=== PATIENT | male | born 1960 | race Caucasian/White ===

== ENCOUNTER 2016-03-28 13:02 | Day surgery (SDC) | payer OTHER ==
[2016-03-28] VITALS (7 sets, daily range): BP systolic 132–155; BP diastolic 72–101; PULSE 67–82; RESP 14–17; O2SAT 94–98
[~2016-03-28] VITALS: Ht 195.6 cm; Wt 71.0 kg
[~2016-03-28 13:02] MED LIST: CEPH-512 PO; HYDR-4003 PO; Vancomycin Inj 1,000 MG in IV Premix 1 EACH IV ONE
[2016-03-28] MEDS ORDERED: Ondansetron 2 mg/mL 2 mL Inj ONE (13:03)
[2016-03-28] MEDS ORDERED: Dexamethasone 4 mg/mL Inj ONE (13:03)
[2016-03-28] MEDS ORDERED: fentaNYL-PF 50 mCg/mL 2 mL Inj ONE (13:03)
[2016-03-28] MEDS ORDERED: Propofol 10 mg/mL 20 mL Inj ONE (13:03)
[2016-03-28] MEDS ORDERED: MetoCLOpramide 5 mg/mL 2 mL Inj ONE (13:03)
[2016-03-28] MEDS ORDERED: Lactated Ringer's 1,000 ML IV ONE ×2 (13:43→18:20)
[2016-03-28] MEDS ORDERED: Vancomycin 1,000mg/200 mL NS IV ONE (14:06)
[2016-03-28 14:20] LABS: Mean Corpuscular Hemoglobin 31.5 pg (27.0-35.0); Mean Corpuscular Volume 95.1 fL (81-100)
[2016-03-28] MEDS ORDERED: fentaNYL-PF 50 mCg/mL 2 mL Inj IVPUSH PRN (16:00)
[2016-03-28] MEDS ORDERED: Phenylephrine 10,000 mCg/mL Inj IVPUSH PRN (16:00)
[2016-03-28] MEDS ORDERED: MetoCLOpramide 5 mg/mL 2 mL Inj IVPUSH PRN (16:00)
[2016-03-28] MEDS ORDERED: Lactated Ringer's 500 ML IV PRN (16:00)
[2016-03-28] MEDS ORDERED: Labetalol 5 mg/mL 4 mL Inj IV PRN (16:00)
[2016-03-28] MEDS ORDERED: Atropine 0.4 mg/mL Inj IVPUSH PRN (16:00)
[2016-03-28] MEDS ORDERED: EPHEDrine Sulfate 50 mg/mL Inj IVPUSH PRN (16:00)
[2016-03-28] MEDS ORDERED: HYDROmorphone 1 mg/mL Inj IVPUSH PRN (16:00)
[2016-03-28] MEDS ORDERED: Lactated Ringer's 1,000 ML IV SCH (16:00)
[2016-03-28] MEDS ORDERED: Ondansetron 2 mg/mL 2 mL Inj IVPUSH PRN (16:00)
[2016-03-28] MEDS ORDERED: hydrALAZINE 20 mg/mL Inj IVPUSH PRN (16:00)
--- NOTE | 2016-03-28 16:00 | PCM.HPANE ---
Patient Data Surgeon Admitting Provider: Attending Provider:Reg Rome MD Primary Care Physician:Luly Other Provider:Anson Latham Anesthesia Reason for Visit Left Index Finger Foreign Body, Cellulitis/Abcess Ht/WT & BMI Height (Feet): 6 Height (Inches): 5 Weight (Kilograms): 71 Body Mass Index 18.00 Allergies Coded Allergies: No Known Allergies (Unverified , 03/27/16) Past Anesthesia History Anesthesia History: Denies:: Anesthesia Reactions, Malignant Hyperthermia Diabetes History Hx Diabetes?: No MRSA MRSA: No Medications Hypertension Medication: No Home Meds Incl Beta Lorrie: No Reported Medications Hydrocodone-Acetaminophen 5-325 mg 1 Each Tablet1 Tablet PO Q8H PRN For Pain Ref 0 03/27/16 Cephalexin (Keflex)500 Mg Capsule1,000 Mg PO BID #40 CAPSULE Ref 0 03/27/16 History History of ENT Problems?: No Hx of Heart Problems?: Yes Cardiovascular History: Positive for:: Cardiac Surgery (HEART CATH W/ STENTS X2 2011) Chest Pain (NE 2011) Coronary Artery Disease Denies:: Valvular Heart Disease Hx of Respiratory Problem?: Yes Respiratory History: Positive for:: Emphysema Denies:: Use of C-PAP Machine Hx Neurologic Problems?: Yes Hx of GI Problems?: No Hx of Problems?: No Male Hx: Denies:: Prostate Problems Scrotal Mass Testicular Surgery Skin History: Positive for:: History Skin Disorders? Denies:: Pressure Ulcers Hx Musculoskeletal Problems?: Yes Musculoskeletal History: Positive for:: Musculoskeletal Trauma (FB LT INDEX FINGER (WOOD OR METAL SPLINTERS)=CURRENT PROBLEM) Hx of Psycho/Social Problems?: No Hx Surgeries?: Yes (HEART CATH W/ STENTS X2) Hx Any Other Health Problems?: Yes Other History: Denies:: Cancer Endocrine Disease Hospitalization Thyroid Disease Hx Diabetes: No Stop/Bang S-Snoring: Do You Snore Loudly: No T-Tired: feel tired, fatigued: Yes O-Obsered: Observed not breath: No P-Blood Pressure: treated: No B- Body Mass Index > 35 kg/m2: No A- Age over 50: Yes N- Neck Large Circumference: No G- Gender Male: Yes SILVESTRE Total Score: 3 Risk Assessment Category Category 1A: Patient has history of documented sleep apnea, and HAS NOT received any narcotic, sedative or anesthesia administration during this stay. Category 1B: Patient has history of documented sleep apnea, and HAS received any narcotic , sedative or anesthesia administration during this stay Category 2: Patient has SUSPECTED Obstructive Sleep Apnea, and HAS received any narcotic , sedative or anesthesia administration during this stay. Category 3: Patient has SUSPECTED Obstructive Sleep Apnea and HAS NOT received narcotic, sedative or anesthesia administration during this stay. Category 4: Outpatient in Procedural Areas with known sleep apnea or who screen positive for High Risk via the STOP/BANG questionnaire. Exam Exam Vital Signs Vital Signs Date Time Temp Pulse Resp B/P Pulse Ox O2 Delivery O2 Flow Rate FiO2 03/28/16 13:31 36.6 76 14 132/72 96 Room Air General Appearance: Alert, Oriented X3, Cooperative, No Acute Distress HEENT/AIRWAY: MP 2, Neck Movement (FROM), Mouth Opening (3 FBMO) Lungs: Clear to Auscultation, Wheezes Heart: Exam Unremarkable, Regular Rate/Rhythm, No Murmurs/Rubs/Gallops Plan Impression Patient chart reviewed, patient interviewed and anesthestic plan with risks, benefits, and alternatives discussed, and informed consent obtained. NPO Status: clears to 1000 ASA Physical Status: ASA2 Mod Systemic Disease Anesthetic Plan: GA Bene/Risks/Altern/Consents: Yes HP Complete Prior to Induction: Yes Dannie Nicholas MD Mar 28, 2016 13:44
[2016-03-28] MEDS ORDERED: Gentamicin 40 mg/mL 2 mL Inj IRRIGATION ONE (16:07)
[2016-03-28] MEDS ORDERED: Bupivacaine-MPF 0.5% 30 mL Inj NERVEBLOCK ONE (17:09)
--- NOTE | 2016-03-28 17:30 | PCM.ANEP2 ---
Post Anesthesia Evaluation ASA/CMS Post Anesthesia VS in Patient's Normal Range?: Yes Resp Stable; Airway Patent?: Yes CV Function & Hydration Stable: Yes Mental Status Recovered?: Yes Pain control Satisfactory?: Yes N/V Control Satisfactory?: Yes Dannie Nicholas MD Mar 28, 2016 17:30
--- NOTE | 2016-03-28 17:30 | PCM.ANEP1 ---
Post Anesthesia Phase 1 PACU Phase 1 Assessment Vital Signs Vital Signs Date Time Temp Pulse Resp B/P Pulse Ox O2 Delivery O2 Flow Rate FiO2 03/28/16 13:31 36.6 76 14 132/72 96 Room Air Anesthetic Administered: GA Level of Alertness: Awake, talking LIMON's with Equal Strength: Yes Pain: No Nausea or Vomiting: No Oxygen Delivery: Room Air Lungs: Clear to Auscultation, Wheezes Dermatome Level: Full Sensation Dannie Nicholas MD Mar 28, 2016 17:30
[2016-03-28] MEDS ORDERED: oxyCODONE-Acetamin 5-325 mg Tablet PO PRN (17:50)
--- NOTE | 2016-03-28 19:12 | OP ---
[address] [address] OPERATIVE REPORT PATIENT: ISRAEL HEWITT : 1960 MR#: [id number] ADMIT: 03/28/2016 JOB ID: [id number] DATE OF SURGERY: 03/28/2016 PREOPERATIVE DIAGNOSIS(ES): 1. Left index finger abscess cellulitis over the area of the proximal phalanx and proximal interphalangeal joint. ICD 10 code LO 3.019. 2. Left index finger foreign body, superficial. ICD 10 code S60.459A. POSTOPERATIVE DIAGNOSIS(ES): 1. Left index finger abscess cellulitis over the area of the proximal phalanx and proximal interphalangeal joint. ICD 10 code L03.019. 2. Left index finger foreign body, superficial. ICD 10 code S60.459A. PROCEDURE: 1. Incision and drainage, excisional debridement, left index finger infection. CPT code 72202. 2. Removal of foreign body and foreign body granulomatous material, left index finger. CPT code 14819. SURGEON: Reg Rome MD GLOBE MOUNTER: None. ANESTHESIA: General. Additional metacarpal nerve block performed by surgeon for postoperative analgesia. COMPLICATIONS: None. SPECIMEN: Sent to pathology; both bacteriology and pathology. COUNTS: Sponge and needle counts correct. INDICATION: Indications a 55-year-old male with an infection in his left index finger that has been indolent over the past month. He evidently got some type of foreign body metal or some type of siding material in his left index finger. He tried to pick it out but he was not able to remove it. He developed an abscess over the dorsal aspect of the PIP joint but it did not involve the joint. It was drained at [facility] and a wick was placed in the wound. The wick was removed, but he still had some residual infection and some associated cellulitis. PROCEDURE IN DETAIL: Under adequate general anesthetic, a well-padded tourniquet was applied to the left upper extremity. After appropriate time-out was called. The arm was elevated, but it was not exsanguinated due to the infection, and the tourniquet inflated to 250 mmHg. A curvilinear incision was fashioned over the dorsal aspect of the PIP joint and extending down to the mid lateral aspect of the finger. This was the area of the most obvious cellulitis and possible area of foreign body. The patient was found have a lot of thickened granulomatous tissue between the skin and subcutaneous tissue, and between that and the extensor tendon. That was dissected. A fair amount of skin was also removed, with skin callus also removed. The area that had been previously incised over the PIP joint; that skin was excised. Cultures were taken. There was a fair amount of fibrous granulomatous material extending over the proximal phalanx and over the PIP joint, and just slightly distal to the PIP joint. There was no involvement over the flexor aspect of the finger. There were some flecks of material that were probably some foreign body that were removed with the granulomatous material. This material was excised and sent to bacteriology as well as pathology. The wound was then thoroughly irrigated with antibiotic solution. After the wound was irrigated with antibiotic solution, clean gloves and clean instruments were utilized. The extensor tendon was noted to be intact and the PIP joint was not involved. The tourniquet was released. Minimal hemostasis required. The wound was loosely approximated with a few horizontal interrupted sutures of 4-0 nylon. A small wick dressing was placed in the central portion of the wound. A Telfa dressing and dry sterile gauze dressings were applied. After the finger was covered, I then cleansed the hand with ChloraPrep and performed a metacarpal nerve block with 0.5% plain Marcaine. The patient was then placed in a radial gutter splint incorporating the left index and long fingers. A fiberglass splint material was utilized. The patient was taken to the recovery room in stable condition. Sponge and needle counts correct. No complications. PLAN: The patient will be discharged to home. I have discussed the case with infectious disease. We will place him on dicloxacillin 500 mg q.6 h. I also gave him prescription for Percocet 10-325; he may take one tablet p.o. q.6 hours p.r.n. pain. He should remain off work until I see him in the office on Friday and pull his wick dressing. 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 CC: [facility] - [facility]oped[facility]
--- NOTE | 2016-04-01 13:59 | PATH ---
SURGICAL PATHOLOGY Attending Physician:Matthew Salguero CASE STATUS: Signed Out PATIENT NAME: ISRAEL HEWITT PID: [id number] : 1960 DATE COLLECTED:03/28/2016 22:55 SPECIMEN: Foreign Body with tissue CLINICAL HISTORY: LEFT INDEX FINGER FOREIGN BODY, ABSCESS CELLULITIS, GRANULOMA FIBROUS TISSUE, STAPH AUREUS INFECTION 1). LEFT INDEX FINGER FINAL DIAGNOSIS: 1.SOFT TISSUE, LEFT INDEX FINGER, EXCISION: FIBROFATTY TISSUE WITH CHRONIC ACTIVE INFLAMMATION. NO EVIDENCE OF MALIGNANCY. ICD10 CODE L92.3 GROSS DESCRIPTION: The specimen is received in formalin, labeled with the patient's name, sublabeled as left index finger foreign body and consists of multiple pieces of childs-thompson rubbery tissue (2.3 x 1.2 x 0.8 cm in aggregate). Section code: (A) tissue. Specimen entirely submitted. 03/30/16 MICRO DESCRIPTION: See diagnosis. ICD-9 CODES: CPT CODES: 1: 25438 Electronically Signed Out Narendra Bearden MD [facility] [address], [place] [address] Technical component performed at [facility], [facility] [address], [place], [address]
== END 2016-03-28 23:59 | disposition home or self-care (01) ==
LOC: SAS 13:02
PROVIDERS: ATTEND Orthopaedic Surgery
DX: S60.451A Superficial foreign body of left index finger, initial encounter (principal); L03.012 Cellulitis of left finger; W45.8XXA Other foreign body or object entering through skin, initial encounter; Y93.H3 Activity, building and construction; Y92.9 Unspecified place or not applicable; Y99.0 Civilian activity done for income or pay; Z95.5 Presence of coronary angioplasty implant and graft
CPT/HCPCS: 26010; 36415; 76000; 85027; 85651; 87070; 87075; 87205; J1100; J1580; J2405; J2765; J3010; J3370; J7120